=== PATIENT | female | born 1990 | race Caucasian/White ===

== ENCOUNTER → 2017-04-11 | Outpatient (CLI) | payer OTHER ==
[~2017-04-11] MED LIST: GADOBUTROL 7.5 MMOL/7.5 ML VIAL INT ART ONE; IOHEXOL 300 MG/ML 50 ML VIAL. INT ART ONE; LIDOCAINE 1% Multi-Dose 20 ML VIAL. ID ONE
--- NOTE | 2017-04-11 12:12 | KCIC ---
Fluoroscopic guided left shoulder injection dated 04/11/2017: No comparison available. Clinical Indication: Gadolinium injection for MRI. Technical factors: The potential benefits and risks of the procedure were discussed with the patient and informed consent was obtained. The anterior left shoulder was prepped and draped in a sterile fashion. After local anesthesia, a 22-gauge spinal needle was inserted into the left shoulder joint using an anterior approach.Following negative aspiration, 15 cc's of a solution of 5cc Omnipaque contrast, 5 cc 1% lidocaine, 10 cc normal saline, and 0.1 cc gadolinium was injected without difficulty. The needle was then removed and a dry sterile dressing was applied. The patient was then sent to the MR suite for imaging. The patient tolerated the procedure well. One fluoroscopic image. 0.47 minutes fluoroscopic time used for the study. Findings: Single fluoroscopic image shows needle tip at the medial inferior 1/3 of the humeral head. Contrast material extends into the joint space. Impression: Fluoroscopic guided left shoulder injection for MRI as described above. Electronically signed by: Mina Nieto MD (04/11/2017 12:08 PM) [id number]
--- NOTE | 2017-04-11 13:19 | KCIC ---
MR arthrogram left shoulder dated 04/11/2017. No comparison available. CLINICAL INDICATION: Left shoulder pain and popping. Weakness for 5 months. Reported history of AC separation injury. TECHNIQUE: Routine MR arthrogram performed following the intra-articular injection of dilute gadolinium. Injection portion of the study will be reported separately. FINDINGS: Adequate distention of the joint space with contrast material. There is some linear increased signal undermining the posterior superior labrum seen best on the coronal fat-saturated T1-weighted images. This extends to the level the biceps anchor. There is also mild blunted morphology of the posterior superior labrum. The anterior and inferior labrum are intact. The superior labrum is small and there is a prominent sublabral foramen. Thickened middle glenohumeral ligament, consistent with [place] complex. Biceps tendon and biceps anchor are intact. Extra articular biceps tendon courses within the bicipital groove. Minimal hypertrophic change of the AC joint. No significant AC separation or coracoclavicular separation. No edema in the periarticular soft tissues. Acromium is type I morphology. No significant subacromial/subdeltoid bursal fluid collection. Rotator cuff is intact. No full-thickness tear or significant partial-thickness defect. Subscapularis is intact. Suprascapular and spinoglenoid notches are clear. No significant muscle edema or muscle atrophy. IMPRESSION: 1. Suspected small SLAP tear of the posterior superior labrum. 2. Otherwise, no evidence of internal derangement. Electronically signed by: Mina Nieto MD (04/11/2017 1:16 PM) [id number]
== END | disposition home or self-care (01) ==
LOC: KCIC 10:32
PROVIDERS: ATTEND Orthopaedic Surgery
DX: M25.512 Pain in left shoulder (principal); G89.29 Other chronic pain; R53.1 Weakness
CPT/HCPCS: 73040; 73222; A9585; Q9967

== ENCOUNTER → 2018-12-07 | Outpatient (CLI) | payer OTHER ==
--- NOTE | 2018-12-07 16:38 | KCIC ---
MR of the left knee HISTORY: Left knee pain. ACL repair June 2018. Posterolateral knee pain. TECHNIQUE: Routine multiplanar sequences are obtained. COMPARISON: None are currently available. FINDINGS: No evidence of a medial meniscal tear. No evidence of a lateral meniscal tear. Anterior cruciate ligament has been reconstructed. The reconstruction is heterogeneous although there do appear to be continuous fibers. No acute Pivot shift bone injuries. Posterior cruciate ligament intact. Medial collateral ligament intact. Iliotibial band unremarkable. Fibular collateral ligament, biceps femoris tendon and popliteus tendon are intact. The patellar tendon is thickened, with some heterogeneous signal, particularly at its central aspect, presumably related to surgical change although there could be a component of superimposed tendinosis. No acute rupture. Quadriceps tendon intact. Retinacular structures are intact. Small joint effusion. No acute articular cartilage defect. No significant Keys's cyst. IMPRESSION: 1. Anterior cruciate ligament reconstruction is heterogeneous and irregular, may just be due to the recent nature. There is no evidence of acute recurrent rupture. 2. Thickening and signal within the patellar tendon is at least partially postsurgical, there could be superimposed component of tendinosis. Electronically signed by: Mina Jaquez MD (12/07/2018 4:35 PM) [id number]
== END | disposition home or self-care (01) ==
LOC: KCIC MRI 15:40
PROVIDERS: ATTEND Orthopaedic Surgery
DX: M25.462 Effusion, left knee (principal)
CPT/HCPCS: 73721